=== PATIENT | female | born 1990 | race American Indian/Alaskan Native ===

== ENCOUNTER 2020-11-30 17:28 | Emergency (ER) | payer SELFPAY ==
[2020-11-30 19:40] VITALS: BP 167/90
[2020-12-01] MEDS ORDERED: TETRACAINE 0.5% OPHTH SOLN 4ML OU ONE (02:17)
--- NOTE | 2020-12-01 02:19 | Emergency Department Report ---
ED General Adult HPI - General Chief complaint: Eye Problems Stated complaint: CONTACT PRASHANT IN EYE Time Seen by Provider: 12/01/20 01:37 Source: patient Mode of arrival: Ambulatory Limitations: No Limitations - History of Present Illness Initial comments: 30-year-old female patient presents emergency department with complaints of foreign body in the right eye starting last night. Patient states she accidentally fell asleep with her contact lenses in place and was unable to remove the contact lens from her right eye. It has been in her right eye for over 24 hours. Denies fever, chills, cough, congestion, headache, vision loss. Denies all other complaints at this time. - Related Data Previous Rx's Medication Instructions Recorded Last Taken Type Moxifloxacin 0.5% 1 drops OP Q8H #1 bottle 12/01/20 Unknown Rx Allergies Allergy/AdvReac Type Severity Reaction Status Date / Time No Known Allergies Allergy Unverified 11/30/20 19:37 ED Review of Systems ROS: Stated complaint: CONTACT PRASHANT IN EYE Other details as noted in HPI Other: GENERAL: Negative for fever. EYES: Positive for foreign body sensation. CARDIOVASCULAR: Negative for chest pain. PULMONARY: Negative for shortness of breath. GASTROINTESTINAL: Negative for abdominal pain. MUSCULOSKELETAL: Negative for back pain. NEUROLOGICAL: Negative for headache. INTEGUMENTARY: Negative for rash. ED Past Medical Hx - Past Medical History Previous Medical History?: No - Surgical History Past Surgical History?: No - Social History Smoking Status: Never Smoker Substance Use Type: Alcohol - Medications Home Medications: Home Medications Medication Instructions Recorded Confirmed Last Taken Type Moxifloxacin 0.5% 1 drops OP Q8H #1 bottle 12/01/20 Unknown Rx ED Physical Exam - General Limitations: No Limitations - Other Other exam information: General: Awake, appropriately interactive, no acute distress. Eyes: PERRL. EOMI. Conjugate gaze. Injection to the right sclera/conjunctiva. Neck: Supple. Full range of motion intact. Cardiovascular: Normal peripheral perfusion. Pulmonary: No respiratory distress. Patient is speaking normally without use of accessory muscles. Skin: No apparent rashes or lesions. Neurological: No facial asymmetry. Speech is clear. Follows commands. Patient is alert and oriented. Musculoskeletal: Moves all four extremities spontaneously with normal range of motion. Psych: Cooperative. Appropriate mood and affect. ED Course Vital Signs 11/30/20 19:37 Temperature 98.7 F Pulse Rate 87 Respiratory 18 Rate Blood Pressure 167/90 O2 Sat by Pulse 100 Oximetry ED Medical Decision Making - Medical Decision Making Patient presents to the emergency department with complaints of contact lens stuck in right eye. Tetracaine was administered and the eye was irrigated copiously with successful removal of retained contact lens. Patient tolerated irrigation well and states her symptoms have improved significantly. Patient will be discharged home with prescription for fluoroquinolone eyedrops and referral to ophthalmology for close outpatient follow-up. Emphasized importance of refraining from further contact lens use until otherwise instructed by ophthalmology. Patient expressed understanding and is agreeable to plan of care. Strict return precautions provided. Repeat exam is unremarkable and benign. History, exam, diagnostic testing, and current condition do not suggest worrisome pathology to warrant further testing, continued ED treatment, admission, or surgical evaluation at this point. Given the low probability of a significant medical illness, it would be more likely to result in harm than benefit to perform further testing at this stage. Discussed findings, presumptive diagnosis, need for follow-up and specific signs/symptoms that should prompt immediate return to the emergency department. Instructions were explained in detail to the patient in addition to giving written discharge information. Patient expressed understanding and was given the opportunity to ask questions, all of which were satisfactorily answered prior to discharge home. Critical care attestation.: If time is entered above; I have spent that time in minutes in the direct care of this critically ill patient, excluding procedure time. ED Disposition Clinical Impression: Contact lens stuck Disposition: DC-01 TO HOME OR SELFCARE Is pt being admited?: No Does the pt Need Aspirin: No Condition: Stable Instructions: Eye Foreign Body, [id number] Additional Instructions: Use Moxifloxacin drops as directed. Discontinue contact lens use for 2 weeks. Follow-up with tax accountant this week. Call today to schedule an appointment. See referral information below. Return to the emergency department immediately for new or worsening symptoms. Prescriptions: Moxifloxacin 0.5% 1 drops OP Q8H #1 bottle Referrals: PETER CALVO MD [Staff Physician] - 3-5 Days AMAYA JUSTICE MD [Staff Physician] - 3-5 Days LESLIE BROUSSARD MD [Staff Physician] - 3-5 Days BEVERLEY PINEDA MD [Staff Physician] - 3-5 Days RANDELL PINEDA MD [Staff Physician] - 3-5 Days Forms: Work/School Release Form(ED) Time of Disposition: 06:07
[2020-12-01] MEDS ORDERED: SODIUM CHLORIDE 0.9% 500 ML 500 ML IV ONE (04:37)
== END 2020-12-01 07:00 | disposition home or self-care (01) ==
LOC: ED 17:28
DX: T15.91XA Foreign body on external eye, part unspecified, right eye, initial encounter (principal); Z72.89 Other problems related to lifestyle; X58.XXXA Exposure to other specified factors, initial encounter; Y93.89 Activity, other specified; Y92.89 Other specified places as the place of occurrence of the external cause; Y99.8 Other external cause status; Y77.11 Contact lens associated with adverse incidents
CPT/HCPCS: 96360; 99283; J7040